=== PATIENT | female | born 1955 | race Caucasian/White ===

== ENCOUNTER → 2020-12-12 | Outpatient (CLI) | payer MEDICARE ==
[2020-12-12 09:54] LABS: ALBUMIN 3.6 g/dL (3.4-5.0); CALCIUM 8.7 mg/dL (8.5-10.1); CREATININE 0.8 mg/dL (0.6-1.0); GFR 71.5; TOTAL BILIRUBIN 0.6 mg/dL (0.2-1.0); TOTAL PROTEIN 7.1 g/dL (6.4-8.2)
[2020-12-12 09:55] LABS: CHOLESTEROL/HDL RATIO 2.8
--- NOTE | 2020-12-12 13:07 | CARD ---
MR#: [id number] Date of Study: 12/12/2020 Ordering Physician: ELIDIA TORRES, Referring Physician: ELIDIA TORRES, Tech: Nighat Sanon [facility] APPROVED REPORT EXAM: Two-dimensional and M-mode echocardiogram with Doppler and color Doppler. Other Information Quality : Good INDICATION Cardiac Disease: CAD Hx: CABG 2D DIMENSIONS RVDd2.9 (2.9-3.5cm)Left Atrium(2D)3.1 (1.6-4.0cm) IVSd0.8 (0.7-1.1cm)Aortic Root(2D)2.6 (2.0-3.7cm) LVDd4.5 (3.9-5.9cm)LVOT Diameter2.0 (1.8-2.4cm) PWd0.7 (0.7-1.1cm)LVDs2.7 (2.5-4.0cm) FS (%) 30.0 %SV65.7 ml LVEF(%)60.0 (>50%) Aortic Valve AoV Peak Ronen.136.1cm/sAoV VTI36.7cm AO Peak GR.7.4mmHgLVOT Peak Ronen.81.9cm/s LVOT VTI 22.96cmAO Mean GR.4mmHg ZAMZAM (VMAX)1.91ci2LCX (VTI)1.97cm2 Mitral Valve MV E Nidqwqig73.0cm/sMV DECEL AXUU523ib MV A Dflyvpls56.8cm/sMV IIG61xa E/A Ratio1.1MVA (PHT)4.22cm2 TDI E/Lateral E'9.1E/Medial E'14.6 Pulmonary Vein S1 Rnurzvrr02.8cm/sD2 Phzdldtr87.2cm/s LEFT VENTRICLE The left ventricle is normal size. There is normal left ventricular wall thickness. Left ventricle sy stolic function is normal. The Ejection Fraction is 55%. Septal motion consistent with CABG. Otherwis e, grossly normal wall motion. Transmitral Doppler flow pattern is Grade I-abnormal relaxation patter n. RIGHT VENTRICLE The right ventricle is normal size. The right ventricular systolic function is normal. ATRIA The left atrium size is normal. The right atrium size is normal. The interatrial septum is intact wit h no evidence for an atrial septal defect or patent foramen ovale as noted on 2-D or Doppler imaging. AORTIC VALVE The aortic valve is mildly thickened but opens well. Doppler and Color Flow revealed no significant a ortic regurgitation. There is no significant aortic valvular stenosis. MITRAL VALVE The mitral valve is calcified but opens well. There is no evidence of mitral valve prolapse. There is no mitral valve stenosis. Doppler and Color-flow revealed trace mitral regurgitation. TRICUSPID VALVE The tricuspid valve is normal in structure and function. Doppler and Color Flow revealed no tricuspid valve regurgitation noted. There is no tricuspid valve stenosis. PULMONIC VALVE The pulmonic valve is not well visualized. Doppler and Color Flow revealed trace pulmonic valvular re gurgitation. There is no pulmonic valvular stenosis. GREAT VESSELS The aortic root is normal in size. The ascending aorta is normal in size. The IVC is normal in size a nd collapses >50% with inspiration. PERICARDIAL EFFUSION There is no evidence of significant pericardial effusion. Critical Notification Critical Value: No <Conclusion> Left ventricle systolic function is normal. The Ejection Fraction is 55%. Septal motion consistent with CABG. Otherwise, grossly normal wall motion. Signed by : Elidia Torres, Electronically Approved : 12/12/2020 13:06:19
== END ==
LOC: ECHO 07:55
PROVIDERS: ATTEND Internal Medicine Cardiovascular Disease
DX: I25.10 Atherosclerotic heart disease of native coronary artery without angina pectoris (principal)
CPT/HCPCS: 36415; 80053; 80061; 83721; 93306

== ENCOUNTER 2021-07-28 13:28 | Emergency (ER) | payer MEDICARE ==
[~2021-07-28] VITALS: Ht 149.9 cm; Wt 60.7 kg
[2021-07-28] MEDS ORDERED: diphenhydrAMINE 50 MG/ML VIAL IVP ONE (14:30)
[2021-07-28] MEDS ORDERED: KETOROLAC 30 MG/ML VIAL. IVP ONE (14:30)
[2021-07-28] MEDS ORDERED: METOCLOPRAMIDE HCL 10 MG/2 ML VIAL. IVP ONE (14:30)
[2021-07-28] MEDS ORDERED: IV NORMAL SALINE 1000ML BAG 1,000 ML IV ONE (14:30)
--- NOTE | 2021-07-28 14:37 | EKG ---
[facility] [address] [place] [address] Test Date: 2021-07-28 Test Time: 14:32:33 Pat Name: SAMANTHA VU Department: Room: Gender: F Rn Mds Coordinator: : 1955 Requested By: GALILEA SCHRADER Order Number: [id number] Reading MD: Timbo Locke MD Measurements Intervals Hughes Rate: 59 P: -38 VA: 172 QRS: -17 QRSD: 88 T: 6 QT: 496 QTc: 496 Interpretive Statements SINUS RHYTHM CONSIDER PRIOR SEPTAL INFARCT NON-SPECIFIC ST/T CHANGES Electronically Signed On 07-30-2021 13:58:49 [employer]IL MAKING MACHINE SETTER by Timbo Locke MD
[2021-07-28 14:50] LABS: BASO # 0.1 x10^3/uL (0.0-0.2); BASO % 1 % (0-3); EOS # 0.2 x10^3/uL (0.0-0.7); EOS % 3 % (0-3); HEMATOCRIT 40.6 % (36.0-47.0); HEMOGLOBIN 13.6 g/dL (12.0-15.5); LYMPH # 0.9 x10^3/uL (1.0-4.8); LYMPH % 13 % (24-48); MEAN CORPUSCULAR HEMOGLOBIN 29 pg (25-35); MEAN CORPUSCULAR HGB CONC 33 g/dL (31-37); MEAN CORPUSCULAR VOLUME 88 fL (79-100); MONO # 0.7 x10^3/uL (0.0-1.1); MONO % 9 % (0-9); NEUT # 5.4 x10^3/uL (1.8-7.7); NEUT % 74 % (31-73); PLATELET COUNT 261 x10^3/uL (140-400); RED BLOOD COUNT 4.62 x10^6/uL (3.50-5.40); WHITE BLOOD COUNT 7.3 x10^3/uL (4.0-11.0)
[2021-07-28 14:59] LABS: BILIRUBIN,URINE NEGATIVE (NEG); CLARITY,URINE CLEAR; COLOR,URINE YELLOW; NITRITE,URINE NEGATIVE (NEG); PH,URINE 5.5 (<5.0-8.0); PROTEIN,URINE NEGATIVE (NEG-TRACE)
[2021-07-28 15:06] LABS: CALCIUM 8.4 mg/dL (8.5-10.1); CREATININE 0.9 mg/dL (0.6-1.0); GFR 62.5; POTASSIUM 4.3 mmol/L (3.5-5.1)
[2021-07-28 15:08] LABS: ALBUMIN 3.7 g/dL (3.4-5.0); ALBUMIN/GLOBULIN RATIO 1.1 (1.0-1.7); TOTAL BILIRUBIN 0.6 mg/dL (0.2-1.0); TOTAL PROTEIN 7.1 g/dL (6.4-8.2)
[2021-07-28 15:15] LABS: BACTERIA,URINE 0 /HPF (0-FEW); RBC,URINE 0 /HPF (0-2)
--- NOTE | 2021-07-28 15:17 | RAD ---
INDICATION: Reason: Right low anterior chest wall pain / Spl. Instructions: / History: COMPARISON: None. FINDINGS: Single view of chest obtained. Poststernotomy changes. Cardiac silhouette unremarkable. Mild interstitial opacities bilaterally with coarsened lung markings. IMPRESSION: * Mild interstitial opacities bilaterally. A portion of this is likely chronic in nature but superim posed mild edema or interstitial infiltrate could have this appearance. Would correlate with symptoms . * Deformity of the right proximal humerus. Would correlate with history of injury to the region. Electronically signed by: Carmelo Lynch MD (07/28/2021 3:15 PM) [id number]
--- NOTE | 2021-07-28 15:46 | RAD ---
CT scan of the head without contrast 07/28/2021 Clinical History: Severe headaches. Technique: Unenhanced, contiguous, 5 mm axial sections were obtained through the head. One or more of the following individualized dose reduction techniques were utilized for this study: 1. Automated exposure control. 2. Adjustment of the mA and/or kV according to patient size. 3. Use of iterative reconstruction technique. Findings: There is generalized parenchymal atrophy. Areas of decreased attenuation are seen within t he periventricular and subcortical white matter of both cerebral hemispheres consistent with areas of small vessel ischemic disease. A 7 mm old area of infarction is seen involving the left cerebellar h emisphere. No acute parenchymal abnormality is seen. No extra-axial fluid collection is noted. No sku ll fracture is seen. Impression: No acute intracranial abnormality is seen. Electronically signed by: Jean Childers MD (07/28/2021 3:44 PM) [id number]
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
[2021-07-28 16:36] VITALS: BP 127/67
== END 2021-07-28 16:43 | disposition home or self-care (01) ==
LOC: ER 13:28
DX: G43.909 Migraine, unspecified, not intractable, without status migrainosus (principal); Z98.84 Bariatric surgery status
CPT/HCPCS: 36415; 70450; 71045; 80053; 81001; 82553; 83690; 83880; 84484; 85025; 87086; 93005; 96361; 96374; 96375; 99285; J1200; J1885; J2765; J7030

== ENCOUNTER → 2021-12-04 | Outpatient (CLI) | payer MEDICARE ==
--- NOTE | 2021-12-04 16:02 | RAD ---
Chest radiograph 12/04/2021 11:35 AM INDICATION: Pain and trauma COMPARISON: Chest radiograph 07/28/2021 TECHNIQUE: 3 dedicated views the right ribs are provided. FINDINGS: The cardiomediastinal silhouette is within normal limits. Median sternotomy changes are present. Right lung is clear. No pleural effusions, pulmonary vascular congestion or pneumothorax. There is a mildly displaced anterior right seventh rib fracture. IMPRESSION: Mildly displaced anterior right seventh rib fracture. Electronically signed by: Maribel Chawla MD (12/04/2021 3:59 PM) [id number]
== END ==
LOC: RAD 11:12
PROVIDERS: ATTEND Internal Medicine
DX: S22.31XA Fracture of one rib, right side, initial encounter for closed fracture (principal); X58.XXXA Exposure to other specified factors, initial encounter; Y93.89 Activity, other specified; Y92.89 Other specified places as the place of occurrence of the external cause; Y99.8 Other external cause status; Z98.890 Other specified postprocedural states
CPT/HCPCS: 71100

== ENCOUNTER → 2021-12-05 | Outpatient (CLI) | payer MEDICARE ==
--- NOTE | 2021-12-05 15:18 | KCIC ---
INDICATION: Screening for osteopenia/osteoporosis. Reason: POST MENOPAUSAL / Spl. Instructions: / H istory: COMPARISON: None. TECHNIQUE: Bone densitometry was performed through the lumbar spine and proximal femur. IMPRESSION: Lumbar Spine: BMD: 0.8 T-Score: -2.2 Range: Osteopenic Proximal Femur: BMD: 0.6 T-Score: -2.8 Range: Osteoporotic World Health Organization Criteria for Bone Density: T-Score: > -1.0: Normal Range < -1.0 to -2.5: Osteopenic Range < -2.5: Osteoporotic Range Electronically signed by: Carmelo Lynch MD (12/05/2021 3:15 PM) [id number]
== END ==
LOC: KCIC DEXA 12:37
PROVIDERS: ATTEND Internal Medicine
DX: M85.89 Other specified disorders of bone density and structure, multiple sites (principal); Z78.0 Asymptomatic menopausal state
CPT/HCPCS: 77080